=== PATIENT | female | born 1945 | race Caucasian/White ===

== ENCOUNTER 2018-02-17 15:11 | Inpatient (IN) | payer MEDICARE, OTHER ==
[~2018-02-17] VITALS: Ht 152.4 cm; Wt 73.4 kg
[~2018-02-17 15:11] MED LIST: ATOR20TA65 PO; DSS100 PO; FERR-89 PO; GEMF600T5 PO; GLIP10 PO; INSNPH SQ; INSU100C3 SQ; LEVO500 PO; METF1000 PO; PROP10TA73 PO
[2018-02-17] MEDS ORDERED: OMEP20 PO (15:14)
[2018-02-17] MEDS ORDERED: VITAD400 PO (15:14)
[2018-02-17 16:21] LABS: BASOPHILS % (AUTO) 0.2 % (0.0-2.0); EOSINOPHILS % (AUTO) 0.9 % (1.0-6.0); HEMATOCRIT 32.3 % (36-46); HEMOGLOBIN 11.2 g/dL (12.0-16.0); LYMPHOCYTES # (AUTO) 0.7 K/uL (1.0-4.8); LYMPHOCYTES % (AUTO) 15.6 % (22.0-44.0); MEAN CORPUSCULAR HEMOGLOBIN 33.8 pg (26.0-34.0); MEAN CORPUSCULAR HGB CONC 34.6 G/dL (31.0-37.0); MEAN CORPUSCULAR VOLUME 98 fL (80-100); MONOCYTES # (AUTO) 0.3 K/uL (0.1-1.0); MONOCYTES % (AUTO) 5.6 % (2.0-9.0); NEUTROPHILS # (AUTO) 3.6 K/uL (1.8-7.7); NEUTROPHILS % (AUTO) 77.7 % (40.0-70.0); RED BLOOD CELL COUNT(AUTO) 3.31 MIL/uL (4.00-5.20); RED CELL DISTRIBUTION WIDTH 16.5 % (11.5-14.5)
[2018-02-17 16:26] LABS: ANION GAP 9 mmol/L (8-16); CALCIUM, TOTAL 9.6 mg/dL (8.8-10.5); CARBON DIOXIDE 24 mmol/L (22-29); CHLORIDE 103 mmol/L (98-107); CREATININE 0.77 mg/dL (0.60-1.30); GLUCOSE,RANDOM 293 mg/dL (70-110); POTASSIUM 4.2 mmol/L (3.5-5.1); SODIUM SERUM 136 mmol/L (136-145); UREA NITROGEN, BLOOD 18 mg/dL (7-18)
[2018-02-17 16:27] LABS: GLOMERULAR FILTR. RATE CALC > 60 mL/min (>60)
[2018-02-17 16:32] LABS: ALANINE AMINOTRANSFERASE 80 U/L (12-78); ALBUMIN 2.7 g/dL (3.4-5.0); ALKALINE PHOSPHATASE 202 U/L (46-116); ASPARTATE AMINOTRANSFERASE 52 U/L (15-37); BILIRUBIN,TOTAL 1.7 mg/dL (0.1-1.0); INR 1.2 (0.9-1.1); LIPASE 216 U/L (73-393); PROTHROMBIN TIME 12.6 SEC (9.4-11.6); TOTAL PROTEIN, SERUM 6.9 g/dL (6.4-8.2)
[2018-02-17 16:36] LABS: APPEARANCE,URINE CLOUDY (CLEAR); GLUCOSE, URINE (UA) >=1000 mg/dL (NEGATIVE); KETONES,URINE TRACE mg/dL (NEGATIVE); LEUKOCYTE ESTERASE ,URINE NEGATIVE (NEGATIVE); NITRATE,URINE NEGATIVE (NEGATIVE); OCCULT BLOOD,URINE NEGATIVE (NEGATIVE); PROTEIN,URINE NEGATIVE (NEGATIVE)
[2018-02-17 16:38] LABS: PLATELET COUNT (AUTO) 67 K/uL (150-450)
[2018-02-17 16:44] LABS: BILIRUBIN,URINE PRELIM. POSITIVE (NEGATIVE)
[2018-02-17 16:50] LABS: BACTERIA,URINE Many /HPF (None Seen); RBC,URINE None Seen /HPF (0-2)
[2018-02-17 16:51] LABS: SQUAMOUS EPITHELIAL CELL,UR Few /LPF (None Seen)
[2018-02-17] MEDS ORDERED: PROPRANOLOL HCL 1 MG/ML VIAL IVP SCH ×2 (19:00→21:30)
[2018-02-17] MEDS ORDERED: LACTULOSE 20 GM/30 ML SOLUTION UDCUP PO ONE (19:00)
[2018-02-17] MEDS ORDERED: ZOLPIDEM TARTRATE 5 MG TABLET PO PRN (19:00)
[2018-02-17] MEDS ORDERED: ONDANSETRON HCL 4 MG/2 ML VIAL IVP PRN ×2 (19:00)
[2018-02-17] MEDS ORDERED: LACTULOSE 200 GM/300 ML RECTAL SOLUTION PR ONE (19:00)
[2018-02-17] MEDS ORDERED: 0.9% SODIUM CHLORIDE 10 ML SYRINGE IVP PRN (19:00)
[2018-02-17] MEDS ORDERED: BISACODYL 10 MG RECTAL RECTAL SUPPOSITORY PR PRN (19:00)
[2018-02-17] MEDS ORDERED: ACETAMINOPHEN 325 MG TABLET PO PRN ×2 (19:00)
[2018-02-17] MEDS ORDERED: ALBUTEROL SULFATE 2.5 MG/0.5 ML NEB SOLUTION NEB PRN ×2 (19:00→22:00)
[2018-02-17] MEDS ORDERED: IPRATROPIUM BROMIDE 0.5 MG/2.5 ML NEB SOLUTION NEB PRN ×2 (19:00→22:00)
[2018-02-17] MEDS ORDERED: MORPHINE SULFATE 2 MG/ML SYRINGE IVP PRN (19:00)
[2018-02-17] MEDS ORDERED: MAGNESIUM HYDROXIDE SUSPENSION 30 ML UDCUP PO PRN (19:00)
[2018-02-17] MEDS ORDERED: HYDROCODONE/ACETAMINOPHEN 5-325 MG TABLET PO PRN (19:00)
[2018-02-17 19:41] LABS: HEMATOCRIT 30.1 % (36-46); HEMOGLOBIN 10.4 g/dL (12.0-16.0)
[2018-02-17] MEDS: CefTRIAXone SODIUM 1 GM in DEXTROSE 5%-WATER 10 ML IV SCH (19:58)
[2018-02-17] MEDS: PANTOPRAZOLE SODIUM 80 MG in SODIUM CHLORIDE 0.9% 100 ML IV SCH (19:58)
[2018-02-17] MEDS: OCTREOTIDE ACETATE 500 MCG in DEXTROSE 5%-WATER 97.5 ML IV SCH (19:59)
[2018-02-17] MEDS ORDERED: LORazepam 2 MG/ML VIAL IVP ONE (20:00)
[2018-02-17] MEDS ORDERED: LORazepam 2 MG/ML VIAL IVP PRN (20:45)
[2018-02-17] MEDS: DOCUSATE SODIUM 100 MG CAPSULE PO SCH (21:00)
[2018-02-18] MEDS ORDERED: HEPARIN SODIUM,PORCINE 5,000 UNITS/ML VIAL SQ SCH
[2018-02-18] MEDS: LACTULOSE 200 GM/300 ML RECTAL SOLUTION PR SCH ×3 (02:05→13:00)
[2018-02-18 02:08] LABS: HEMATOCRIT 31.6 % (36-46); HEMOGLOBIN 10.9 g/dL (12.0-16.0)
[2018-02-18] MEDS: OCTREOTIDE ACETATE 500 MCG in DEXTROSE 5%-WATER 97.5 ML IV SCH (03:44)
[2018-02-18] MEDS: PANTOPRAZOLE SODIUM 80 MG in SODIUM CHLORIDE 0.9% 100 ML IV SCH (03:44)
[2018-02-18 03:49] LABS: GLUCOSE,POINT OF CARE 266 MG/DL (70-110)
[2018-02-18] MEDS ORDERED: PANTOPRAZOLE SODIUM 40 MG/VIAL IVP SCH (09:00)
[2018-02-18 09:15] LABS: BASOPHILS % (AUTO) 0.2 % (0.0-2.0); EOSINOPHILS % (AUTO) 0.7 % (1.0-6.0); HEMATOCRIT 28.2 % (36-46); HEMOGLOBIN 9.7 g/dL (12.0-16.0); LYMPHOCYTES # (AUTO) 0.9 K/uL (1.0-4.8); LYMPHOCYTES % (AUTO) 23.1 % (22.0-44.0); MEAN CORPUSCULAR HEMOGLOBIN 34.3 pg (26.0-34.0); MEAN CORPUSCULAR HGB CONC 34.5 G/dL (31.0-37.0); MEAN CORPUSCULAR VOLUME 99 fL (80-100); MONOCYTES # (AUTO) 0.3 K/uL (0.1-1.0); MONOCYTES % (AUTO) 7.2 % (2.0-9.0); NEUTROPHILS # (AUTO) 2.8 K/uL (1.8-7.7); NEUTROPHILS % (AUTO) 68.8 % (40.0-70.0); PLATELET COUNT (AUTO) 61 K/uL (150-450); RED BLOOD CELL COUNT(AUTO) 2.84 MIL/uL (4.00-5.20); RED CELL DISTRIBUTION WIDTH 16.6 % (11.5-14.5)
[2018-02-18 09:33] LABS: ALANINE AMINOTRANSFERASE 64 U/L (12-78); ALBUMIN 2.3 g/dL (3.4-5.0); ALKALINE PHOSPHATASE 148 U/L (46-116); ANION GAP 5 mmol/L (8-16); ASPARTATE AMINOTRANSFERASE 38 U/L (15-37); BILIRUBIN,TOTAL 1.3 mg/dL (0.1-1.0); CALCIUM, TOTAL 8.9 mg/dL (8.8-10.5); CARBON DIOXIDE 24 mmol/L (22-29); CHLORIDE 106 mmol/L (98-107); CREATININE 0.66 mg/dL (0.60-1.30); GLUCOSE,RANDOM 277 mg/dL (70-110); POTASSIUM 4.3 mmol/L (3.5-5.1); SODIUM SERUM 135 mmol/L (136-145); UREA NITROGEN, BLOOD 13 mg/dL (7-18)
[2018-02-18 09:53] LABS: GLOMERULAR FILTR. RATE CALC > 60 mL/min (>60)
[2018-02-18 10:46] VITALS: BP 125/68
[2018-02-18] MEDS ORDERED: SODIUM CHLORIDE 0.9% 1,000 ML IV ONE (11:15)
[2018-02-18] MEDS ORDERED: MIDAZOLAM HCL 5 MG/ML VIAL ONE (11:41)
[2018-02-18] MEDS ORDERED: FentaNYL CITRATE-PF 100 MCG/2 ML VIAL ONE (11:41)
[2018-02-18] MEDS: DOCUSATE SODIUM 100 MG CAPSULE PO SCH ×2 (11:49→20:45)
[2018-02-18] MEDS: RIFAXIMIN 550 MG TABLET PO SCH ×2 (14:57→20:45)
[2018-02-18 15:51] VITALS: BP 122/56
[2018-02-18] MEDS: LACTULOSE 20 GM/30 ML SOLUTION UDCUP PO SCH ×2 (16:07→21:01)
[2018-02-18 19:11] VITALS: BP 112/60
[2018-02-18] MEDS: PANTOPRAZOLE SODIUM 40 MG/VIAL IVP SCH (20:45)
[2018-02-18] MEDS: CefTRIAXone SODIUM 1 GM in DEXTROSE 5%-WATER 10 ML IV SCH (20:45)
[2018-02-18 23:57] VITALS: BP 106/53
[2018-02-19 04:11] VITALS: BP 120/57
[2018-02-19] MEDS ORDERED: PROPOFOL 1% 20 ML VIAL IVP ONE (05:59)
[2018-02-19] MEDS ORDERED: LIDOCAINE HCL/PF 2% 5 ML VIAL IM ONE (05:59)
[2018-02-19 07:55] VITALS: BP 120/44
[2018-02-19] MEDS: LACTULOSE 20 GM/30 ML SOLUTION UDCUP PO SCH (08:47)
[2018-02-19] MEDS: RIFAXIMIN 550 MG TABLET PO SCH (08:48)
[2018-02-19] MEDS: PANTOPRAZOLE SODIUM 40 MG/VIAL IVP SCH (08:48)
[2018-02-19] MEDS: DOCUSATE SODIUM 100 MG CAPSULE PO SCH (08:48)
[2018-02-19 12:16] VITALS: BP 122/56
[2018-02-19] MEDS ORDERED: CIPR-278 PO (12:19)
[2018-02-19] MEDS ORDERED: LACT30L PO (12:20)
== END 2018-02-19 13:25 | disposition home or self-care (01) | DRG 378 ==
LOC: EMS 15:11 → 5S 02-18 05:00
PROVIDERS: ADMIT Hospitalist; ATTEND Hospitalist
PROC: 0DJ08ZZ Inspection of Upper Intestinal Tract, Via Natural or Artificial Opening Endoscopic (ICD-10-PCS; principal; 2018-02-18 12:00)
DX: K92.2 Gastrointestinal hemorrhage, unspecified (principal); K76.6 Portal hypertension; N39.0 Urinary tract infection, site not specified; K72.90 Hepatic failure, unspecified without coma; I85.10 Secondary esophageal varices without bleeding; K74.60 Unspecified cirrhosis of liver; E11.9 Type 2 diabetes mellitus without complications; K31.89 Other diseases of stomach and duodenum; E78.00 Pure hypercholesterolemia, unspecified; E78.5 Hyperlipidemia, unspecified; I10 Essential (primary) hypertension; Z79.899 Other long term (current) drug therapy; Z90.49 Acquired absence of other specified parts of digestive tract; Z79.4 Long term (current) use of insulin
CPT/HCPCS: 85014; 85018; 86850; 86900; 86901; 87086; 93005; 96365; 96366; 96368; 96375; 99285; C9113; J0696; J1800; J2060; J2250; J2354; J2704; J3010; J3490; J7030; J7050; J7060

== ENCOUNTER 2018-08-12 19:38 | Inpatient (IN) | payer OTHER ==
[~2018-08-12] VITALS: Ht 152.4 cm; Wt 69.2 kg
[~2018-08-12 19:38] MED LIST changes: -DSS100 PO; -GEMF600T5 PO; -INSNPH SQ; -INSU100C3 SQ; +LACT30L PO; -LEVO500 PO; +OMEP20 PO; +VITAD400 PO
[2018-08-12] MEDS ORDERED: SODIUM CHLORIDE 0.9% 1,000 ML IV ONE (20:00)
[2018-08-12] MEDS ORDERED: PANTOPRAZOLE SODIUM 80 MG in SODIUM CHLORIDE 0.9% 100 ML IV SCH (20:00)
[2018-08-12] MEDS ORDERED: PANTOPRAZOLE SODIUM 40 MG/VIAL IVP ONE (20:00)
[2018-08-12 20:23] LABS: BASOPHILS % (AUTO) 0.6 % (0.0-2.0); EOSINOPHILS % (AUTO) 0.2 % (1.0-6.0); HEMATOCRIT 28.6 % (36-46); HEMOGLOBIN 9.9 g/dL (12.0-16.0); LYMPHOCYTES % (AUTO) 21.8 % (22.0-44.0); MEAN CORPUSCULAR HEMOGLOBIN 33.6 pg (26.0-34.0); MEAN CORPUSCULAR HGB CONC 34.7 G/dL (31.0-37.0); MEAN CORPUSCULAR VOLUME 97 fL (80-100); MONOCYTES # (AUTO) 0.5 K/uL (0.1-1.0); MONOCYTES % (AUTO) 5.3 % (2.0-9.0); NEUTROPHILS # (AUTO) 6.7 K/uL (1.8-7.7); NEUTROPHILS % (AUTO) 72.1 % (40.0-70.0); PLATELET COUNT (AUTO) 94 K/uL (150-450); RED BLOOD CELL COUNT(AUTO) 2.96 MIL/uL (4.00-5.20); RED CELL DISTRIBUTION WIDTH 14.6 % (11.5-14.5)
[2018-08-12 20:36] LABS: INR 1.3 (0.9-1.1); PROTHROMBIN TIME 13.9 SEC (9.4-11.6)
[2018-08-12 20:43] LABS: CALCIUM, TOTAL 10.2 mg/dL (8.8-10.5); CREATININE 1.08 mg/dL (0.60-1.30); POTASSIUM 4.9 mmol/L (3.5-5.1)
[2018-08-12 20:50] LABS: ALBUMIN 2.6 g/dL (3.4-5.0); BILIRUBIN,TOTAL 1.7 mg/dL (0.1-1.0); TOTAL PROTEIN, SERUM 6.2 g/dL (6.4-8.2); TROPONIN I 0.23 ng/mL (0.00-0.05)
[2018-08-12] MEDS ORDERED: ACETAMINOPHEN 325 MG TABLET PO PRN ×2 (21:15→21:45)
[2018-08-12] MEDS ORDERED: CefTRIAXone 1 GM/DEXTROSE 50 ML IV ONE (21:15)
[2018-08-12] MEDS ORDERED: 0.9% SODIUM CHLORIDE 10 ML SYRINGE IVP PRN (21:15)
[2018-08-12] MEDS ORDERED: OCTREOTIDE ACETATE 100 MCG/ML VIAL IVP ONE (21:15)
[2018-08-12] MEDS ORDERED: ONDANSETRON HCL 4 MG/2 ML VIAL IVP PRN ×2 (21:15→21:45)
[2018-08-12] MEDS ORDERED: LACTULOSE 200 GM/300 ML RECTAL SOLUTION PR ONE (21:15)
[2018-08-12] MEDS ORDERED: OCTREOTIDE ACETATE 500 MCG in DEXTROSE 5%-WATER 97.5 ML IV SCH (21:30)
[2018-08-12] MEDS ORDERED: POTASSIUM CHLORIDE 20 MEQ ER TABLET PO PRN (21:45)
[2018-08-12] MEDS ORDERED: POTASSIUM CHL 10 MEQ/WATER 50 ML IV PRN (21:45)
[2018-08-12] MEDS ORDERED: IPRATROPIUM BROMIDE 0.5 MG/2.5 ML NEB SOLUTION NEB PRN (21:45)
[2018-08-12] MEDS ORDERED: MAGNESIUM SULFATE 2 GM/WATER 50 ML IV PRN (21:45)
[2018-08-12] MEDS ORDERED: ZOLPIDEM TARTRATE 5 MG TABLET PO PRN (21:45)
[2018-08-12] MEDS ORDERED: OxyCODONE HCL/ACETAMINOPHEN 5-325 MG TABLET PO PRN (21:45)
[2018-08-12] MEDS ORDERED: BISACODYL 10 MG RECTAL RECTAL SUPPOSITORY PR PRN (21:45)
[2018-08-12] MEDS ORDERED: ALBUTEROL SULFATE 2.5 MG/0.5 ML NEB SOLUTION NEB PRN (21:45)
[2018-08-12] MEDS ORDERED: MAGNESIUM SULFATE 4 GM/WATER 100 ML IV PRN (21:45)
[2018-08-12] MEDS ORDERED: MAGNESIUM OXIDE 400 MG TABLET PO PRN (21:45)
[2018-08-12] MEDS ORDERED: DEXTROSE 50%-WATER 25 GM/50 ML SYRINGE IVP PRN (21:45)
[2018-08-12] MEDS ORDERED: MAGNESIUM HYDROXIDE SUSPENSION 30 ML UDCUP PO PRN (21:45)
[2018-08-12 23:31] LABS: APPEARANCE,URINE CLOUDY (CLEAR); BILIRUBIN,URINE NEGATIVE (NEGATIVE); GLUCOSE, URINE (UA) >=1000 mg/dL (NEGATIVE); KETONES,URINE 15 mg/dL (NEGATIVE); LEUKOCYTE ESTERASE ,URINE NEGATIVE (NEGATIVE); NITRATE,URINE NEGATIVE (NEGATIVE); OCCULT BLOOD,URINE NEGATIVE (NEGATIVE); PH,URINE 5.5 (5.0-8.0); PROTEIN,URINE NEGATIVE (NEGATIVE); UROBILINOGEN,URINE 0.2 mg/dL (<=1.0)
[2018-08-12 23:36] LABS: BACTERIA,URINE Many /HPF (None Seen); RBC,URINE 0-2 /HPF (0-2); SQUAMOUS EPITHELIAL CELL,UR Few /LPF (None Seen); WBC,URINE 0-2 /HPF (0-5)
[2018-08-13] VITALS (22 sets, daily range): BP systolic 96–140; BP diastolic 31–100
[2018-08-13] MEDS: MORPHINE SULFATE 2 MG/ML SYRINGE IVP PRN ×2 (00:14→21:01)
[2018-08-13] MEDS: INSULIN LISPRO 100 UNITS/ML SQ PRN ×4 (00:28→21:08)
[2018-08-13] MEDS: PANTOPRAZOLE SODIUM 80 MG in SODIUM CHLORIDE 0.9% 100 ML IV SCH ×2 (04:58→16:31)
[2018-08-13 04:59] LABS: BASOPHILS % (AUTO) 0.2 % (0.0-2.0); EOSINOPHILS % (AUTO) 0.1 % (1.0-6.0); HEMATOCRIT 21.4 % (36-46); HEMOGLOBIN 7.6 g/dL (12.0-16.0); LYMPHOCYTES # (AUTO) 1.8 K/uL (1.0-4.8); LYMPHOCYTES % (AUTO) 20.3 % (22.0-44.0); MEAN CORPUSCULAR HGB CONC 35.6 G/dL (31.0-37.0); MEAN CORPUSCULAR VOLUME 99 fL (80-100); MONOCYTES # (AUTO) 0.4 K/uL (0.1-1.0); NEUTROPHILS # (AUTO) 6.6 K/uL (1.8-7.7); NEUTROPHILS % (AUTO) 74.4 % (40.0-70.0); PLATELET COUNT (AUTO) 61 K/uL (150-450); RED BLOOD CELL COUNT(AUTO) 2.17 MIL/uL (4.00-5.20); RED CELL DISTRIBUTION WIDTH 14.4 % (11.5-14.5)
[2018-08-13 05:18] LABS: ALBUMIN 2.2 g/dL (3.4-5.0); CALCIUM, TOTAL 9.5 mg/dL (8.8-10.5); CREATININE 1.24 mg/dL (0.60-1.30); POTASSIUM 5.1 mmol/L (3.5-5.1); TOTAL PROTEIN, SERUM 5.2 g/dL (6.4-8.2)
[2018-08-13 05:20] LABS: PLATELET MORPHOLOGY COMMENT LARGE PLTS PRESENT
[2018-08-13] MEDS ORDERED: SODIUM CHLORIDE 0.9% 1,000 ML IV SCH (05:30)
[2018-08-13] MEDS ORDERED: INSULIN LISPRO 100 UNITS/ML SQ PRN (05:30)
[2018-08-13] MEDS ORDERED: DEXTROSE 50%-WATER 25 GM/50 ML SYRINGE IVP PRN ×2 (05:30→11:15)
[2018-08-13] MEDS: OCTREOTIDE ACETATE 500 MCG in DEXTROSE 5%-WATER 97.5 ML IV SCH ×2 (07:47→20:24)
[2018-08-13] MEDS ORDERED: METOCLOPRAMIDE HCL 5 MG/ML 2 ML VIAL IVP ONE (09:00)
[2018-08-13] MEDS: ALBUMIN HUMAN 25%-25GM/100ML 100 ML IV SCH ×2 (10:44→20:31)
[2018-08-13 11:17] LABS: INR 1.5 (0.9-1.1); PROTHROMBIN TIME 15.3 SEC (9.4-11.6)
[2018-08-13] MEDS: LACTULOSE 200 GM/300 ML RECTAL SOLUTION PR SCH ×3 (11:21→20:31)
[2018-08-13] MEDS: CefTRIAXone 1 GM/DEXTROSE 50 ML IV SCH (11:22)
[2018-08-13 11:50] LABS: GLUCOSE,POINT OF CARE 376 MG/DL (70-110)
[2018-08-13 11:50] LABS: GLUCOSE,POINT OF CARE 344 MG/DL (70-110)
[2018-08-13] MEDS ORDERED: MIDAZOLAM HCL 2 MG/2 ML VIAL IVP ONE (12:00)
[2018-08-13] MEDS ORDERED: EPHEDrine SULFATE 50 MG/ML VIAL IM ONE (12:00)
[2018-08-13] MEDS ORDERED: PROPOFOL 1% 20 ML VIAL IVP ONE (12:00)
[2018-08-13] MEDS ORDERED: FentaNYL CITRATE-PF 100 MCG/2 ML VIAL IVP ONE (12:00)
[2018-08-13] MEDS ORDERED: LIDOCAINE/PF 2% 5 ML VIAL INJ ONE (12:00)
[2018-08-13 12:57] LABS: BASOPHILS % (AUTO) 0.4 % (0.0-2.0); EOSINOPHILS % (AUTO) 0.6 % (1.0-6.0); LYMPHOCYTES # (AUTO) 2.3 K/uL (1.0-4.8); LYMPHOCYTES % (AUTO) 35.2 % (22.0-44.0); MEAN CORPUSCULAR HEMOGLOBIN 33.8 pg (26.0-34.0); MEAN CORPUSCULAR HGB CONC 34.7 G/dL (31.0-37.0); MEAN CORPUSCULAR VOLUME 98 fL (80-100); MONOCYTES # (AUTO) 0.3 K/uL (0.1-1.0); MONOCYTES % (AUTO) 5.4 % (2.0-9.0); NEUTROPHILS # (AUTO) 3.7 K/uL (1.8-7.7); NEUTROPHILS % (AUTO) 58.4 % (40.0-70.0); PLATELET COUNT (AUTO) 54 K/uL (150-450); RED BLOOD CELL COUNT(AUTO) 2.01 MIL/uL (4.00-5.20); RED CELL DISTRIBUTION WIDTH 14.5 % (11.5-14.5)
[2018-08-13 13:13] LABS: HEMOGLOBIN 6.8 g/dL (12.0-16.0)
[2018-08-13 13:14] LABS: HEMATOCRIT 19.6 % (36-46)
[2018-08-13] MEDS ORDERED: SODIUM CHLORIDE 0.9% 250 ML IV ONE (14:41)
[2018-08-13 15:09] LABS: GLUCOSE,POINT OF CARE 336 MG/DL (70-110)
[2018-08-13 18:53] LABS: GLUCOSE,POINT OF CARE 306 MG/DL (70-110)
[2018-08-13] MEDS ORDERED: SODIUM CHLORIDE 0.9% 100 ML ONE (19:29)
[2018-08-13 19:37] LABS: BASOPHILS % (AUTO) 0.3 % (0.0-2.0); EOSINOPHILS % (AUTO) 1.5 % (1.0-6.0); LYMPHOCYTES # (AUTO) 1.5 K/uL (1.0-4.8); LYMPHOCYTES % (AUTO) 36.7 % (22.0-44.0); MEAN CORPUSCULAR HGB CONC 34.9 G/dL (31.0-37.0); MEAN CORPUSCULAR VOLUME 95 fL (80-100); MONOCYTES # (AUTO) 0.2 K/uL (0.1-1.0); MONOCYTES % (AUTO) 5.6 % (2.0-9.0); NEUTROPHILS # (AUTO) 2.3 K/uL (1.8-7.7); NEUTROPHILS % (AUTO) 55.9 % (40.0-70.0); RED BLOOD CELL COUNT(AUTO) 2.05 MIL/uL (4.00-5.20); RED CELL DISTRIBUTION WIDTH 14.6 % (11.5-14.5)
[2018-08-13 19:50] LABS: HEMOGLOBIN 6.8 g/dL (12.0-16.0)
[2018-08-13 19:51] LABS: HEMATOCRIT 19.4 % (36-46)
[2018-08-13 21:27] LABS: PLATELET COUNT (AUTO) 44 K/uL (150-450)
[2018-08-14] VITALS (24 sets, daily range): BP systolic 99–126; BP diastolic 37–76
[2018-08-14] MEDS ORDERED: SODIUM CHLORIDE 0.9% 100 ML ONE (00:06)
[2018-08-14] MEDS: INSULIN LISPRO 100 UNITS/ML SQ PRN ×5 (00:27→21:29)
[2018-08-14] MEDS: PANTOPRAZOLE SODIUM 80 MG in SODIUM CHLORIDE 0.9% 100 ML IV SCH ×2 (02:05→12:53)
[2018-08-14] MEDS ORDERED: SODIUM CHLORIDE 0.9% 500 ML IV ONE (03:42)
[2018-08-14] MEDS: OCTREOTIDE ACETATE 500 MCG in DEXTROSE 5%-WATER 97.5 ML IV SCH ×4 (04:48→20:45)
[2018-08-14 05:28] LABS: MEAN CORPUSCULAR HEMOGLOBIN 33.9 pg (26.0-34.0); MEAN CORPUSCULAR HGB CONC 35.7 G/dL (31.0-37.0); MEAN CORPUSCULAR VOLUME 95 fL (80-100); PLATELET COUNT (AUTO) 40 K/uL (150-450); RED BLOOD CELL COUNT(AUTO) 2.07 MIL/uL (4.00-5.20); RED CELL DISTRIBUTION WIDTH 14.6 % (11.5-14.5)
[2018-08-14 05:29] LABS: BASOPHILS % (AUTO) 0.4 % (0.0-2.0); EOSINOPHILS % (AUTO) 2.1 % (1.0-6.0); LYMPHOCYTES # (AUTO) 1.2 K/uL (1.0-4.8); LYMPHOCYTES % (AUTO) 36.7 % (22.0-44.0); MONOCYTES # (AUTO) 0.2 K/uL (0.1-1.0); MONOCYTES % (AUTO) 6.2 % (2.0-9.0); NEUTROPHILS # (AUTO) 1.8 K/uL (1.8-7.7); NEUTROPHILS % (AUTO) 54.6 % (40.0-70.0)
[2018-08-14 05:31] LABS: HEMATOCRIT 19.7 % (36-46)
[2018-08-14] MEDS ORDERED: SODIUM CHLORIDE 0.9% 250 ML IV ONE (06:28)
[2018-08-14] MEDS: LACTULOSE 200 GM/300 ML RECTAL SOLUTION PR SCH (09:00)
[2018-08-14] MEDS: ALBUMIN HUMAN 25%-25GM/100ML 100 ML IV SCH (09:08)
[2018-08-14 09:38] LABS: GLUCOSE,POINT OF CARE 223 MG/DL (70-110)
[2018-08-14 09:39] LABS: GLUCOSE,POINT OF CARE 139 MG/DL (70-110)
[2018-08-14 09:50] LABS: GLUCOSE,POINT OF CARE 189 MG/DL (70-110)
[2018-08-14] MEDS: CefTRIAXone 1 GM/DEXTROSE 50 ML IV SCH (09:56)
[2018-08-14 12:25] LABS: BASOPHILS % (AUTO) 0.4 % (0.0-2.0); EOSINOPHILS % (AUTO) 1.8 % (1.0-6.0); HEMATOCRIT 22.9 % (36-46); HEMOGLOBIN 7.9 g/dL (12.0-16.0); LYMPHOCYTES # (AUTO) 0.9 K/uL (1.0-4.8); LYMPHOCYTES % (AUTO) 31.7 % (22.0-44.0); MEAN CORPUSCULAR HEMOGLOBIN 32.4 pg (26.0-34.0); MEAN CORPUSCULAR HGB CONC 34.6 G/dL (31.0-37.0); MEAN CORPUSCULAR VOLUME 94 fL (80-100); MONOCYTES # (AUTO) 0.1 K/uL (0.1-1.0); NEUTROPHILS # (AUTO) 1.8 K/uL (1.8-7.7); NEUTROPHILS % (AUTO) 61.1 % (40.0-70.0); PLATELET COUNT (AUTO) 44 K/uL (150-450); RED BLOOD CELL COUNT(AUTO) 2.44 MIL/uL (4.00-5.20); RED CELL DISTRIBUTION WIDTH 15.1 % (11.5-14.5)
[2018-08-14 14:54] LABS: POTASSIUM,URINE RANDOM 26 mmol/L (12-75); SODIUM,URINE RANDOM 5 mmol/l (20-110)
[2018-08-14 15:02] LABS: INR 1.5 (0.9-1.1); PROTHROMBIN TIME 15.4 SEC (9.4-11.6)
[2018-08-14 15:05] LABS: ALANINE AMINOTRANSFERASE 37 U/L (12-78); ALBUMIN 3.1 g/dL (3.4-5.0); ALKALINE PHOSPHATASE 62 U/L (46-116); ANION GAP 5 mmol/L (8-16); ASPARTATE AMINOTRANSFERASE 43 U/L (15-37); BILIRUBIN,TOTAL 1.4 mg/dL (0.1-1.0); CARBON DIOXIDE 26 mmol/L (22-29); CHLORIDE 112 mmol/L (98-107); CREATININE 0.73 mg/dL (0.60-1.30); GLUCOSE,RANDOM 270 mg/dL (70-110); POTASSIUM 3.6 mmol/L (3.5-5.1); SODIUM SERUM 143 mmol/L (136-145); TOTAL PROTEIN, SERUM 5.4 g/dL (6.4-8.2); UREA NITROGEN, BLOOD 37 mg/dL (7-18)
[2018-08-14 15:09] LABS: GLOMERULAR FILTR. RATE CALC > 60 mL/min (>60)
[2018-08-14 15:20] LABS: GLUCOSE,POINT OF CARE 221 MG/DL (70-110)
[2018-08-14] MEDS: LACTULOSE 20 GM/30 ML SOLUTION UDCUP PO SCH ×2 (16:16→21:01)
[2018-08-14 18:08] LABS: BASOPHILS % (AUTO) 0.4 % (0.0-2.0); EOSINOPHILS % (AUTO) 2.2 % (1.0-6.0); HEMATOCRIT 24.8 % (36-46); HEMOGLOBIN 8.6 g/dL (12.0-16.0); LYMPHOCYTES # (AUTO) 0.8 K/uL (1.0-4.8); LYMPHOCYTES % (AUTO) 33.2 % (22.0-44.0); MEAN CORPUSCULAR HEMOGLOBIN 32.4 pg (26.0-34.0); MEAN CORPUSCULAR HGB CONC 34.7 G/dL (31.0-37.0); MEAN CORPUSCULAR VOLUME 93 fL (80-100); MONOCYTES # (AUTO) 0.1 K/uL (0.1-1.0); MONOCYTES % (AUTO) 4.6 % (2.0-9.0); NEUTROPHILS # (AUTO) 1.5 K/uL (1.8-7.7); NEUTROPHILS % (AUTO) 59.6 % (40.0-70.0); PLATELET COUNT (AUTO) 43 K/uL (150-450); RED BLOOD CELL COUNT(AUTO) 2.65 MIL/uL (4.00-5.20); RED CELL DISTRIBUTION WIDTH 15.3 % (11.5-14.5)
[2018-08-14 18:25] LABS: PLATELET MORPHOLOGY COMMENT DECREASED
[2018-08-14] MEDS ORDERED: OCTREOTIDE ACETATE 100 MCG/ML VIAL IVP SCH (21:00)
[2018-08-14] MEDS: PANTOPRAZOLE SODIUM 40 MG/VIAL IVP SCH (21:01)
[2018-08-14] MEDS: RIFAXIMIN 550 MG TABLET PO SCH (21:02)
[2018-08-14 21:46] LABS: GLUCOSE,POINT OF CARE 254 MG/DL (70-110)
[2018-08-15] VITALS: BP 109/45
[2018-08-15 04:00] VITALS: BP 114/54
[2018-08-15] MEDS: OCTREOTIDE ACETATE 500 MCG in DEXTROSE 5%-WATER 97.5 ML IV SCH (04:51)
[2018-08-15 05:14] LABS: BASOPHILS % (AUTO) 0.8 % (0.0-2.0); EOSINOPHILS % (AUTO) 3.1 % (1.0-6.0); HEMATOCRIT 23.9 % (36-46); HEMOGLOBIN 8.2 g/dL (12.0-16.0); LYMPHOCYTES # (AUTO) 1.2 K/uL (1.0-4.8); LYMPHOCYTES % (AUTO) 44.8 % (22.0-44.0); MEAN CORPUSCULAR HEMOGLOBIN 32.6 pg (26.0-34.0); MEAN CORPUSCULAR HGB CONC 34.4 G/dL (31.0-37.0); MEAN CORPUSCULAR VOLUME 95 fL (80-100); MONOCYTES # (AUTO) 0.1 K/uL (0.1-1.0); MONOCYTES % (AUTO) 4.9 % (2.0-9.0); NEUTROPHILS # (AUTO) 1.3 K/uL (1.8-7.7); NEUTROPHILS % (AUTO) 46.4 % (40.0-70.0); PLATELET COUNT (AUTO) 48 K/uL (150-450); RED BLOOD CELL COUNT(AUTO) 2.53 MIL/uL (4.00-5.20); RED CELL DISTRIBUTION WIDTH 14.9 % (11.5-14.5)
[2018-08-15 05:23] LABS: INR 1.5 (0.9-1.1); PROTHROMBIN TIME 15.6 SEC (9.4-11.6)
[2018-08-15 05:26] LABS: ANION GAP 5 mmol/L (8-16); CALCIUM, TOTAL 9.3 mg/dL (8.8-10.5); CARBON DIOXIDE 27 mmol/L (22-29); CHLORIDE 111 mmol/L (98-107); CREATININE 0.75 mg/dL (0.60-1.30); GLUCOSE,RANDOM 175 mg/dL (70-110); POTASSIUM 3.5 mmol/L (3.5-5.1); SODIUM SERUM 143 mmol/L (136-145); UREA NITROGEN, BLOOD 28 mg/dL (7-18)
[2018-08-15 05:27] LABS: GLOMERULAR FILTR. RATE CALC > 60 mL/min (>60)
[2018-08-15 07:22] LABS: ALANINE AMINOTRANSFERASE 41 U/L (12-78); ALKALINE PHOSPHATASE 65 U/L (46-116); ASPARTATE AMINOTRANSFERASE 51 U/L (15-37); BILIRUBIN,TOTAL 1.2 mg/dL (0.1-1.0); TOTAL PROTEIN, SERUM 5.4 g/dL (6.4-8.2)
[2018-08-15 07:40] LABS: GLUCOSE,POINT OF CARE 179 MG/DL (70-110)
[2018-08-15 08:00] VITALS: BP 113/52
[2018-08-15] MEDS: LACTULOSE 20 GM/30 ML SOLUTION UDCUP PO SCH (08:24)
[2018-08-15] MEDS: RIFAXIMIN 550 MG TABLET PO SCH (08:25)
[2018-08-15] MEDS: PANTOPRAZOLE SODIUM 40 MG/VIAL IVP SCH (08:25)
[2018-08-15] MEDS ORDERED: CIPR500S5 PO (11:02)
[2018-08-15] MEDS ORDERED: RIFAX550 PO (11:02)
[2018-08-15] MEDS ORDERED: PANT40TA PO (11:02)
[2018-08-15] MEDS ORDERED: LACT30L PO (11:03)
[2018-08-15] MEDS: CefTRIAXone 1 GM/DEXTROSE 50 ML IV SCH (11:12)
[2018-08-15 12:00] VITALS: BP 108/59
[2018-08-15 21:33] LABS: GLUCOSE,POINT OF CARE 308 MG/DL (70-110)
== END 2018-08-15 12:35 | disposition home or self-care (01) | DRG 432 ==
LOC: EMS 19:39 → ICU 22:12
PROVIDERS: ADMIT Internal Medicine; ATTEND Internal Medicine
PROC: 05HY33Z Insertion of Infusion Device into Upper Vein, Percutaneous Approach (ICD-10-PCS; 2018-08-13)
PROC: B54NZZA Ultrasonography of Left Upper Extremity Veins, Guidance (ICD-10-PCS; 2018-08-13)
PROC: 30233N1 Transfusion of Nonautologous Red Blood Cells into Peripheral Vein, Percutaneous Approach (ICD-10-PCS; 2018-08-13)
PROC: 06L38CZ Occlusion of Esophageal Vein with Extraluminal Device, Via Natural or Artificial Opening Endoscopic (ICD-10-PCS; principal; 2018-08-13 09:30)
PROC: 30233R1 Transfusion of Nonautologous Platelets into Peripheral Vein, Percutaneous Approach (ICD-10-PCS; 2018-08-14)
PROC: 30233N1 Transfusion of Nonautologous Red Blood Cells into Peripheral Vein, Percutaneous Approach (ICD-10-PCS; 2018-08-14)
DX: K74.69 Other cirrhosis of liver (principal); I85.11 Secondary esophageal varices with bleeding; K76.6 Portal hypertension; R18.8 Other ascites; D64.9 Anemia, unspecified; E11.9 Type 2 diabetes mellitus without complications; K72.90 Hepatic failure, unspecified without coma; D69.6 Thrombocytopenia, unspecified; K59.00 Constipation, unspecified; K31.89 Other diseases of stomach and duodenum; D50.0 Iron deficiency anemia secondary to blood loss (chronic); E78.00 Pure hypercholesterolemia, unspecified; E78.5 Hyperlipidemia, unspecified; I10 Essential (primary) hypertension; K21.9 Gastro-esophageal reflux disease without esophagitis; Z90.49 Acquired absence of other specified parts of digestive tract
CPT/HCPCS: 36245; 36569; 76705; 76937; 83036; 84133; 84300; 85384; 86850; 86900; 86901; 86920; 86927; 87081; 87086; 93005; 96365; 96367; 96375; 97162; 99291; C9113; G0378; J0696; J2250; J2270; J2354; J2704; J2765; J3010; J3490; J7030; J7040; J7050; J7060; P9016; P9035; P9046